=== PATIENT | male | born 1960 | race Caucasian/White ===

== ENCOUNTER 2025-06-25 06:36 | Day surgery (SDC) | payer MEDICARE, OTHER, SELFPAY | END 2025-06-25 10:37 | disposition home or self-care (01) | LOC: GI 06:36 | PROVIDERS: ATTENDING PHYSICIAN Surgery; FAMILY PHYSICIAN Family Medicine | DX: Z12.11 Encounter for screening for malignant neoplasm of colon (principal); K64.9 Unspecified hemorrhoids; D12.3 Benign neoplasm of transverse colon; D12.2 Benign neoplasm of ascending colon; K63.5 Polyp of colon; K52.9 Noninfective gastroenteritis and colitis, unspecified; Z86.0100 Personal history of colon polyps, unspecified | CPT/HCPCS: 45380; 88305 ==